=== PATIENT | female | born 1955 | race African-American/Black ===

== ENCOUNTER 2022-05-27 22:37 | Observation (INO) | payer BC, OTHER ==
[2022-05-28] MEDS ORDERED: SODIUM CHLORIDE 0.9% 500 ML INFUS.BAG IV ONE (01:32)
[2022-05-28] MEDS ORDERED: ACETAMINOPHEN 1000 MG/100 ML BAG IVPB ONE ×3 (01:33→21:30)
[2022-05-28] MEDS ORDERED: FAMOTIDINE 20 MG/50 ML IVPB 20 MG/50 ML MG IVPB ONE ×2 (01:33→02:43)
[2022-05-28] MEDS ORDERED: ONDANSETRON 4 MG/2 ML VIAL IVPUSH ONE (01:33)
[2022-05-28] MEDS ORDERED: ACETAMINOPHEN INJECTION 100 ML IVPB ONE ×2 (01:56→09:15)
[2022-05-28] MEDS ORDERED: ONDANSETRON 4 MG/2 ML VIAL ONE (01:56)
[2022-05-28 02:08] LABS: BASO % 0.4 % (0-2.0); EOS % 0.8 % (0-4.5); HEMATOCRIT 43.7 % (32.4-45.2); HEMOGLOBIN 14.3 GM/dL (10.7-15.3); LYMPH % 9.9 % (8-40); MCH 27.5 pg (25.7-33.7); MCHC 32.7 g/dl (32.0-36.0); MEAN PLT VOLUME 9.6 fl (7.5-11.1); MONO % 4.8 % (3.8-10.2); NEUT % 84.1 % (42.8-82.8); PLATELET COUNT 189 10^3/uL (134-434); RDW 14.8 % (11.6-15.6); WHITE BLOOD COUNT 8.3 K/mm3 (4.0-10.0)
[2022-05-28 02:26] LABS: CALCIUM 8.4 mg/dL (8.5-10.1)
[2022-05-28 02:27] LABS: ALBUMIN 3.4 g/dl (3.4-5.0); BLOOD UREA NITROGEN 17.5 mg/dL (7-18); MAGNESIUM 1.5 mg/dL (1.8-2.4)
[2022-05-28 02:30] LABS: CREATININE 1.1 mg/dL (0.55-1.3)
[2022-05-28 02:31] LABS: TOT PROT 7.2 g/dl (6.4-8.2)
[2022-05-28 02:35] LABS: N-TERMINAL BNP 38.3 pg/ml (5-125)
[2022-05-28 02:40] LABS: BILIRUBIN,TOTAL 0.8 mg/dL (0.2-1)
[2022-05-28] MEDS ORDERED: MAGNESIUM SULF 50% (8.12 MEQ/2 ML-1 GM VIAL) IVPB ONE (03:08)
[2022-05-28] MEDS ORDERED: MAGNESIUM SULFATE IN WATER 2 GM/50 ML IVPB IVPB ONE (03:39)
[2022-05-28 04:04] LABS: PH,URINE 5.5 (5.0-8.0); URINE APPEARANCE CLEAR; URINE BILIRUBIN NEGATIVE (NEGATIVE); URINE COLOR YELLOW; URINE GLUCOSE (UA) NEGATIVE (NEGATIVE); URINE KETONE TRACE (NEGATIVE); URINE LEUK ESTERASE NEGATIVE (NEGATIVE); URINE NITRITE NEGATIVE (NEGATIVE); URINE PROTEIN NEGATIVE (NEGATIVE); URINE UROBILINOGEN 0.2 mg/dL (0.2-1.0)
[2022-05-28 04:25] LABS: CALCIUM 7.9 mg/dL (8.5-10.1)
[2022-05-28 04:26] LABS: BLOOD UREA NITROGEN 16.8 mg/dL (7-18)
[2022-05-28 04:29] LABS: CREATININE 1.1 mg/dL (0.55-1.3)
[2022-05-28] MEDS ORDERED: oxyCODONE HCL 5 MG TABLET PO PRN (10:15)
[2022-05-29 03:16] VITALS: RESP 20
[2022-05-29 04:08] VITALS: BMI 43.2
[2022-05-29 05:33] VITALS: TEMP 98.8
[2022-05-29] MEDS ORDERED: ACETAMINOPHEN 325 MG TABLET (FP) PO PRN (07:33)
[2022-05-29 08:31] LABS: BASO % 0.4 % (0-2.0); EOS % 2.6 % (0-4.5); HEMOGLOBIN 13.9 GM/dL (10.7-15.3); LYMPH % 34.5 % (8-40); MCH 27.8 pg (25.7-33.7); MCHC 32.4 g/dl (32.0-36.0); MEAN CELL VOLUME 85.7 fl (80-96); MEAN PLT VOLUME 9.8 fl (7.5-11.1); MONO % 10.2 % (3.8-10.2); NEUT % 52.3 % (42.8-82.8); PLATELET COUNT 180 10^3/uL (134-434); RBC 5.01 M/mm3 (3.60-5.2); RDW 15.1 % (11.6-15.6); WHITE BLOOD COUNT 5.3 K/mm3 (4.0-10.0)
[2022-05-29 08:41] LABS: ALBUMIN 3.2 g/dl (3.4-5.0); BLOOD UREA NITROGEN 10.2 mg/dL (7-18); CALCIUM 7.8 mg/dL (8.5-10.1)
[2022-05-29 08:42] LABS: MAGNESIUM 2.2 mg/dL (1.8-2.4)
[2022-05-29 08:44] LABS: CREATININE 0.9 mg/dL (0.55-1.3); PHOSPHOROUS 1.9 mg/dL (2.5-4.9)
[2022-05-29 08:45] LABS: BILIRUBIN,TOTAL 0.5 mg/dL (0.2-1); TOT PROT 6.7 g/dl (6.4-8.2)
[2022-05-29] MEDS ORDERED: ENOXAPARIN NA (PORCINE) 40 MG/0.4 ML DISP.SYRIN SQ SCH (10:00)
[2022-05-29 10:02] VITALS: BP 143/71; PULSE 70
== END 2022-05-29 11:33 | disposition home or self-care (01) ==
LOC: JER 22:37 → UNDOADMOB 05-28 05:22 → JERBED 05-28 05:22 → OBSVTOIN 05-28 10:15 → INTOOBSV 05-28 10:15 → J4W 05-28 19:25 → JERBED 05-28 19:25 → J4W 05-29 07:16 → JERBED 05-29 07:16
PROVIDERS: ADMIT Internal Medicine; ATTEND Internal Medicine
PROC: 3E033NZ Introduction of Analgesics, Hypnotics, Sedatives into Peripheral Vein, Percutaneous Approach (ICD-10-PCS; principal; 2022-05-29)
PROC: 3E023GC Introduction of Other Therapeutic Substance into Muscle, Percutaneous Approach (ICD-10-PCS; 2022-05-29)
PROC: 3E033GC Introduction of Other Therapeutic Substance into Peripheral Vein, Percutaneous Approach (ICD-10-PCS; 2022-05-29)
PROC: 3E0337Z Introduction of Electrolytic and Water Balance Substance into Peripheral Vein, Percutaneous Approach (ICD-10-PCS; 2022-05-29)
DX: I11.0 Hypertensive heart disease with heart failure (principal); J45.909 Unspecified asthma, uncomplicated; E78.5 Hyperlipidemia, unspecified; G47.33 Obstructive sleep apnea (adult) (pediatric); I20.9 Angina pectoris, unspecified; I10 Essential (primary) hypertension; Z86.718 Personal history of other venous thrombosis and embolism; E66.01 Morbid (severe) obesity due to excess calories; Z68.41 Body mass index [BMI] 40.0-44.9, adult; Z91.010 Allergy to peanuts
CPT/HCPCS: 0241U-QW; 36415; 71045-TC-FY; 71275-TC; 80048; 80053; 81003; 83735; 83880; 84100; 84484; 85025; 85379; 86900; 87086; 93005; 93010; 93306-TC; 96365; 96372; 96375; 96376; 99285-25; G0378